=== PATIENT | female | born 1990 | race Caucasian/White ===

== ENCOUNTER 2020-04-04 13:31 | Outpatient (REF) | payer OTHER, SELFPAY | END 2020-04-04 13:32 | disposition home or self-care (01) | LOC: HO.LAB 13:31 | PROVIDERS: Visit Provider Internal Medicine | DX: Z20.828 Contact with and (suspected) exposure to other viral communicable diseases (principal) | CPT/HCPCS: C9803; U0003 ==

== ENCOUNTER 2020-10-22 13:50 | Outpatient (REF) | payer OTHER, SELFPAY ==
--- NOTE | ~2020-10-22 | US_ITS ---
EXAMINATION: US THYROID CLINICAL INFORMATION: Nontoxic multinodular goiter. COMPARISON: Ultrasound thyroid soft tissues neck 11/15/2019 and 05/10/2019. TECHNIQUE: Linear transducer grayscale and color Doppler examination with attention to the region of the thyroid. FINDINGS: SIZE: Measurements of the thyroid lobes and nodules are given in sagittal, anteroposterior and transverse dimensions respectively. Right Thyroid Lobe: 4.3 x 2.1 x 1.4 cm, volume 6.6 mL. Previously 5.0 x 2.0 x 1.7 cm, volume 8.9 mL. Parenchyma: The gland echotexture is heterogeneous. Thyroid vascularity is normal. Left Thyroid Lobe: 4.0 x 1.6 x 1.3 cm, volume 5.8 mL. Previously 4.6 x 1.6 x 1.5 cm, volume 0.8 mL. Parenchyma: The gland echotexture is heterogeneous. Thyroid vascularity is normal. Isthmus: 2.4 cm in maximum AP dimension. Previously 0.4 cm. Estimated total number of nodules greater than or equal to 1 cm: 0. Project Admin nodules are described as follows: 1. Location: Right lower pole. Size: 0.56 x 0.50 x 0.41 cm, volume 0.06 mL. Previously: 6 7 x 0.41 x 0.58 cm, volume 0.08 mL. Nodule characteristics: Composition: Spongiform (0). Echogenicity: 0 Shape: 0 Margins: 0 Echogenic Foci: 0 ACR TI-RADS total points: 0 ACR TI-RADS category: 0 Significant change in size (>/= 20% in 2 dimensions and minimal increase of 2 mm or 50% or greater increase in volume): None Change in features: None Change in ACR TI-RADS risk category: None available 2. Location: Left lower pole. Size: 0.84 x 0.52 x 0.71 cm, volume 0.16 mL. Previously: 1.0 x 0.63 x 0.1 cm, volume 0.32 mL. Nodule characteristics: Composition: Solid (2). Echogenicity: Hyperechoic (1). Shape: Not taller than wide (0). Margins: Smooth (0). Echogenic Foci: None (0). ACR TI-RADS total points: 3 ACR TI-RADS category: 3 Significant change in size (>/= 20% in 2 dimensions and minimal increase of 2 mm or 50% or greater increase in volume): None Change in features: None Change in ACR TI-RADS risk category: Not available NODES: No lymphadenopathy is seen in the tissue surrounding the thyroid gland. US/US thyroid IMPRESSION: Subcentimeter thyroid nodules nonsuspicious in both lobes. The thyroid lobes are heterogenous but not enlarged. Recommend continued follow-up. ACR TI-RADS RECOMMENDATION REFERENCE: Ultrasound-guided fine-needle aspiration, followup ultrasound, no further follow up. * TR1 (0 point) and TR 2 (2 points): No FNA or follow up * TR3 (3 points): FNA if more than or equal to 2.5 cm in maximum dimension, followup ultrasound in 1, 3 and 5 years if 1.5 to 2.4 cm in maximum dimension. * TR4 (4-6 points): FNA if more than or equal to 1.5 cm in maximum dimension, followup ultrasound in 1, 2, 3 and 5 years if 1 to 1.4 cm in maximum dimension. * TR5 (more than or equal to 7 points): FNA if more than or equal to 1 cm in maximum dimension, followup ultrasound every year for 5 years if 0.5 to 0.9 cm in maximum dimension. * TR3, TR4 or TR5 nodules that are below the size threshold for follow up receive no follow up.
== END 2020-10-22 13:51 | disposition home or self-care (01) ==
LOC: HO.US 13:50
PROVIDERS: Visit Provider Internal Medicine Endocrinology, Diabetes & Metabolism
DX: E04.2 Nontoxic multinodular goiter (principal)
CPT/HCPCS: 76536

== ENCOUNTER 2020-12-03 07:21 | Outpatient (REF) | payer OTHER, SELFPAY ==
[2020-12-03 08:53] LABS: Thyroid Stimulating Hormone 2.25 uIU/mL (0.32-4.0)
== END 2020-12-03 07:22 | disposition home or self-care (01) ==
LOC: HO.LAB 07:21
PROVIDERS: PCP Nurse Practitioner Family; Visit Provider Internal Medicine Endocrinology, Diabetes & Metabolism
DX: E04.2 Nontoxic multinodular goiter (principal); E06.3 Autoimmune thyroiditis
CPT/HCPCS: 36415; 84439; 84443

== ENCOUNTER 2021-01-09 09:16 | Outpatient (REF) | payer OTHER, SELFPAY | END 2021-01-09 09:17 | disposition home or self-care (01) | LOC: HO.LAB 09:16 | PROVIDERS: PCP Nurse Practitioner Family; Visit Provider Internal Medicine | DX: Z20.822 Contact with and (suspected) exposure to COVID-19 (principal) | CPT/HCPCS: C9803; U0003; U0005 ==

== ENCOUNTER → 2022-12-09 07:10 | Outpatient (BNVA) | payer OTHER, SELFPAY | PROVIDERS: PCP Nurse Practitioner Family; Visit Provider Internal Medicine ==

== ENCOUNTER 2023-01-16 09:30 | Outpatient (REF) | payer OTHER, SELFPAY ==
[2023-01-16 11:11] LABS: MANUAL DIFF FLAG NO
[2023-01-16 11:19] LABS: Appearance Urine Clear; Color Urine Yellow; Glucose Urine UA Negative (Negative); Leukocyte Esterase Urine Small (1+) (Negative); Nitrite Urine Negative (Negative); PH 6.5 (5.0-9.0); UMIC TRIGGER UACC YES; Urine Blood Negative (Negative); Urine Ketones Negative (Negative); Urine Protein Negative (Neg-Trace)
[2023-01-16 11:22] LABS: Basophils Absolute Auto 0.1 X10*3/uL (0.0-0.2); Basophils Percent Auto 0.5 % (0-2); Eosinophils Absolute Auto 0.5 X10*3/uL (0.0-0.4); Eosinophils Percent Auto 4.8 % (0-4); Hemoglobin 13.5 g/dl (12.0-16.0); Imm Gran Abs Auto 0.01 X10*3/uL (0.00-0.03); Imm Gran Pct Auto 0.1 % (0.0-0.4); Lymphocytes Absolute Auto 2.8 X10*3/uL (1.2-4.9); Lymphocytes Percent Auto 29.4 % (20-40); Mean Corpuscular HGB Conc 32.1 g/dl (31.0-35.0); Mean Corpuscular Hemoglobin 27.6 pg (27.0-33.0); Mean Corpuscular Volume 85.7 fL (80.0-98.0); Mean Platelet Volume 10.8 fL (9.4-12.3); Monocytes Absolute Auto 0.8 X10*3/uL (0.1-1.2); Monocytes Percent Auto 8.7 % (2-11); Neutrophils Absolute Auto 5.3 x10*3/uL (2.0-8.3); Neutrophils Percent Auto 56.5 % (45-73); Platelet Count 307 X10*3/uL (160-400); Red Cell Distribution Width 13.7 % (11.0-16.0); White Blood Count 9.4 X10*3/uL (4.8-10.8)
[2023-01-16 11:50] LABS: Alanine Aminotransferase 17 U/L (0-31); Albumin Level 4.1 g/dL (3.5-5.0); Alkaline Phosphatase 83 U/L (39-117); Anion Gap 10 (12-20); Aspartate Amino Transferase 15 U/L (5-31); Bilirubin Total 0.2 mg/dL (0.0-1.0); Blood Urea Nitrogen 14 mg/dL (9-16); Calcium 9.3 mg/dL (8.4-10.2); Carbon Dioxide 25 mmol/L (22-29); Chloride 107 mmol/L (96-108); Cholesterol 206 mg/dL (<200); Estimated Glomerular Filt Rate > 60; Glucose Fasting 98 mg/dL (60-99); HDL Cholesterol 46 mg/dL (>40); LDL Cholesterol Calculated 106 mg/dL (<100); Potassium 4.3 mmol/L (3.3-5.1); Sodium 138 mmol/L (135-145); Total Protein 7.3 g/dL (6.5-8.0); Triglycerides 273 mg/dL (<150)
[2023-01-16 12:07] LABS: TSH reflex Free T4 1.86 uIU/mL (0.32-4.0)
[2023-01-16 12:08] LABS: Bacteria Urine None Seen (None Seen); Hyaline Casts Urine 0-2 /LPF (0-2); UACC Culture Trigger YES; WBC Urine 0-5 /HPF (0-5)
== END 2023-01-16 09:31 | disposition home or self-care (01) ==
LOC: HO.HMGCLDS 09:30
PROVIDERS: PCP Nurse Practitioner Family; Visit Provider Nurse Practitioner Family
DX: Z00.00 Encounter for general adult medical examination without abnormal findings (principal); R82.90 Unspecified abnormal findings in urine; E06.3 Autoimmune thyroiditis; E78.5 Hyperlipidemia, unspecified
CPT/HCPCS: 36415; 80053; 80061; 81001; 84443; 85025; 87086

== ENCOUNTER 2023-01-18 09:34 | Outpatient (REF) | payer OTHER, SELFPAY ==
--- NOTE | ~2023-01-18 | US_ITS ---
EXAMINATION: US THYROID CLINICAL INFORMATION: Autoimmune thyroiditis. COMPARISON: Ultrasound thyroid 10/22/2020 and 11/15/2019. TECHNIQUE: Linear transducer reardon-scale and color Doppler examination with attention to the region of the thyroid. FINDINGS: SIZE: Measurements of the thyroid lobes and nodules are given in sagittal, anteroposterior and transverse dimensions respectively. Right Thyroid Lobe: 4.9 x 1.7 x 1.6 cm, volume 6.8 mL. Previously 4.3 x 2.1 x 1.4 cm, volume 6.6 mL. Parenchyma: The gland echotexture is heterogeneous. Thyroid vascularity is normal. Left Thyroid Lobe: 4.4 x 1.5 x 1.4 cm, volume 5.1 mL. Previously 4.0 x 1.6 x 1.3 cm, volume 5.8 mL. Parenchyma: The gland echotexture is heterogeneous. Thyroid vascularity is normal. Isthmus: 0.6 cm in maximum AP dimension. Previously 0.4 cm. Estimated total number of nodules greater than or equal to 1 cm: 1. Operations Expert nodules are described as follows: 1. Location: Right inferior. Size: 0.9 x 0.6 x 0.5 cm, volume 0.1 mL. Previously: 0.5 x 0.5 x 0.4 cm, volume 0.06 mL. Nodule characteristics: Composition: Solid/almost completely solid (2). Echogenicity: Hypoechoic (2). Shape: Taller than wide (3). Margins: Smooth (0). Echogenic Foci: None (0). ACR TI-RADS total points: 7 Previous: 0 ACR TI-RADS category: 5 Previous: 1 2. Location: Left mid. Size: 0.5 x 0.5 x 0.5 cm, volume 0.1 mL. Previously: New since the previous study. Nodule characteristics: Composition: Solid/almost completely solid (2). Echogenicity: Hypoechoic (2). Shape: Not taller than wide (0). Margins: Smooth (0). Echogenic Foci: None (0). ACR TI-RADS total points: 4 ACR TI-RADS category: 4 3. Location: Left inferior. Size: 1.0 x 0.6 x 0.9 cm, volume 0.3 mL. Previously: 0.8 x 0.5 x 0.7 cm, volume 0.1 mL. Nodule characteristics: Composition: Solid (2). Echogenicity: Hyperechoic (1). Shape: Not taller than wide (0). Margins: Smooth (0). Echogenic Foci: None (0). ACR TI-RADS total points: 3 Previous: 3 ACR TI-RADS category: 3 Previous: 3 NODES: No lymphadenopathy is seen in the tissue surrounding the thyroid gland. US/US thyroid IMPRESSION: Multinodular thyroid gland, largest nodules left inferior 1.0 cm TR 3 and right inferior 0.9 cm TR 5. Continued surveillance recommended. ACR TI-RADS RECOMMENDATION REFERENCE: Ultrasound-guided fine-needle aspiration, follow up ultrasound, no further followup. * TR1 (0 point) and TR2 (2 points): No FNA or followup * TR3 (3 points): FNA if more than or equal to 2.5 cm in maximum dimension, follow up ultrasound in 1, 3 and 5 years if 1.5 to 2.4 cm in maximum dimension. * TR4 (4-6 points): FNA if more than or equal to 1.5 cm in maximum dimension, follow up ultrasound in 1, 2, 3 and 5 years if 1 to 1.4 cm in maximum dimension. * TR5 (more than or equal to 7 points): FNA if more than or equal to 1 cm in maximum dimension, follow up ultrasound every year for 5 years if 0.5 to 0.9 cm in maximum dimension. * TR3, TR4 or TR5 nodules that are below the size threshold for follow up receive no followup.
== END 2023-01-18 09:35 | disposition home or self-care (01) ==
LOC: HO.US 09:34
PROVIDERS: PCP Nurse Practitioner Family; Visit Provider Nurse Practitioner Family
DX: E04.2 Nontoxic multinodular goiter (principal); E06.3 Autoimmune thyroiditis
CPT/HCPCS: 76536

== ENCOUNTER 2023-05-04 14:37 | Outpatient (AMB) | payer OTHER, SELFPAY ==
--- NOTE | 2023-05-04 14:40 | MHC.PC.OV ---
Vital Signs 05/04/23 14:42 Height 5 ft 2 in Weight 199 lb BMI 36.4 BP 116/72 Blood Pressure Location Rt brachial Position Sitting Pulse 96 Pulse Source Pulse Oximeter Pulse Oximetry (%) 97 Oxygen Delivery Method Room Air Intake Visit Reasons: Annual PE Intake Note: Pt is here for her Annual PE Pt has [employer] at [facility] her last pap was 12/15/22 Is last menstrual period known: Yes Last menstrual period: 04/13/23 Allergies No Known Allergies [No Known Allergies*] Allergy (Verified 05/04/23 14:45) Tobacco use date assessed: 05/04/23 Dental Screening Dental Screen Date: 05/04/23 Did you have a dental visit in the last 12 months?: No Did you have a dental problem in the last 6 months where you did not have access to dental care?: No Was dental information given to patient?: No HPI Annual PE HPI Details Pt is here for a PE. Will order labs. Has a health plan manager. [facility] Medical History Seizure disorder Toni's disease Non-toxic multinodular goiter Surgical History History of section Family History Father Mental health disorder Mother No problems noted. Maternal Grandmother CVD (cardiovascular disease) Maternal Grandfather Diabetes mellitus Paternal Grandmother No problems noted. 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 1. Little interest or pleasure in doing things: not at all 2. Feeling down, depressed, or hopeless: several days 3. Trouble falling or staying asleep, or sleeping too much: not at all 4. Feeling tired or having little energy: not at all 5. Poor appetite or overeating: not at all 6. Feeling bad about yourself - or that you are a failure or have let yourself or your family down: several days 7. Trouble concentrating on things, such as reading the newspaper or watching television: several days 8. Moving or speaking so slowly that other people could have noticed. Or the opposite - being so fidgety or restless that you have been moving around a lot more than usual: not at all 9. Thoughts that you would be better off or of hurting yourself in some way: not at all Total score: 3 Source: Developed by Drs. Jovon Rodriguez, Christina Black, Noble Kirby and colleagues, with an educational jacob from [employer]. Thrive Questionnaire Date Thrive assessed: 04/15/22 I am a: Patient What is your living situation today?: I have a steady place to live Within the past 12 months, did the food you bought not last and you didn't have the money to get more?: Never true Within the past 12 months, did you worry whether your food would run out before you got money to buy more?: Never true Do you have trouble paying for medicines?: No Do you have trouble getting transportation to medical appointments?: No Do you have trouble paying your heating and electricity bill?: No Do you have trouble taking care of your child, family member or friend?: No Do you have trouble with day-to-day activities such as bathing, preparing meals, shopping, managing finances, etc.?: No Are you currently unemployed and looking for a job?: No Are you interested in more education?: No Please select the resources that you would like help with: None AUDIT C Alcohol Use Questionnaire (AUDIT-C) 1. How often do you have a drink containing alcohol?: 2-4 times a month 2. How many drinks containing alcohol do you have on a typical day when you are drinking?: 3 or 4 3. How often do you have six or more drinks on one occasion?: Never Total Score: 3 HAKEEM-7 AMB Questionnaire HAKEEM-7 Date HAKEEM - 7 assessed: 05/04/23 Feeling nervous, anxious, or on edge: 1 = Several days Not being able to stop or control worryin = Not at all Worrying too much about different things: 0 = Not at all Trouble relaxin = Several days Being so restless that it is hard to sit still: 0 = Not at all Becoming easily annoyed or irritable: 1 = Several days Feeling afraid as if something awful might happen: 0 = Not at all Total HAKEEM-7 score (0-4 normal; 5-9 mild; 10-14 moderate; 15-21 severe): 3 Source: Developed by Drs. Jovon Rodriguez, Christina Black, Noble Kirby and colleagues, with an educational jacob from [employer]. Review of Systems Const Denies chills and Denies fever(s) Eyes Denies blurry vision ENT Denies vertigo, Denies dizziness and Denies sore throat Card Denies chest pain at rest, Denies chest pain with activity, Denies diaphoresis, Denies dyspnea and Denies dyspnea on exertion Resp Denies cough, Denies dyspnea, Denies dyspnea on exertion and Denies wheezing GI Denies abdominal pain, Denies melena, Denies hematochezia, Denies constipation, Denies diarrhea and Denies loose stools Denies hematuria Musc Denies numbness and Denies tingling Skin/Breast Denies lesions Neuro Denies vertigo, Denies dizziness, Denies numbness and Denies tingling Psych Denies anxiety, Denies depression, Denies homicidal ideation, Denies suicidal ideation and Denies other (substance abuse) Aller/Immun Denies wheezing Physical exam (Primary Care) Vital Signs: Last Vital Signs Pulse 96 05/04/23 14:42 BP 116/72 05/04/23 14:42 Pulse Ox 97 05/04/23 14:42 Oxygen Delivery Method Room Air 05/04/23 14:42 BMI result Body Mass Index 36.4 Tobacco/Smoking Status: Tobacco use Status Tobacco use date assessed 05/04/23 05/04/23 14:50 Patient Tobacco Use Status Never used Tobacco 05/04/23 14:41 e-Cigarette/Vaping Use Never Used 05/04/23 14:41 PHQ-9: PHQ-9 Score PHQ-9: Total score 3 05/04/23 15:26 Thrive Assessment: Date of Thrive Assessment Date Thrive assessed 04/15/22 05/04/23 14:41 Const General: cooperative Nutritional Appearance: obese Orientation/consciousness: patient oriented x3 HENMT Head: Yes normal to inspection, Yes normocephalic and Yes atraumatic Ears: TM's normal bilaterally Eyes General: appearance normal, both eyes and all related structures Alignment and Position: alignment normal and position normal Neck Neck: Yes normal visual inspection and Yes no lymphadenopathy Thyroid: Thyroid normal Resp Effort & Inspection: normal respiratory effort Auscultation: clear to auscultation bilaterally Cardio Rate: regular rate Rhythm: regular rhythm Heart sounds: S1 normal heart sound present, S2 normal heart sound present and no murmurs GI Palpation (GI): Soft to palpation and nontender Auscultation: normal bowel sounds Skin Rashes: no rashes Neuro General: patient oriented x3, moves all extremities, no focal motor deficits and deep tendon reflexes 2+ bilaterally Romberg Test: Negative Psych Appearance: grossly normal Mental Status: mental status grossly normal Speech and movement: Normal speech and movement present Affect: normal affect Attitude: cooperative Thought process: Normal thought process present Thought content: Normal thought content present Insight: Good insight present (Psych) Judgement: Good judgement present (Psych) Assessment and Plan Assessment & Plan (1) Physical exam: Code(s): Z00.00 - Encounter for general adult medical examination without abnormal findings Plan: Labs ordered Plan The patient agreed to the use of a medical radiation dosimetrist for this encounter. Scribed for JO-ANN Rhodes by Margie Bonilla medical radiation dosimetrist, on 05/04/2023 at 15:15 EST. Orders: Orders Comprehensive [place]. Panel Fast Today Z00.00 - Encounter for general adult medical examination without abnormal findings TSH reflex Free T4 Today Z00.00 - Encounter for general adult medical examination without abnormal findings Lipid Panel Today Z00.00 - Encounter for general adult medical examination without abnormal findings Complete Blood Count Auto Diff Today Z00.00 - Encounter for general adult medical examination without abnormal findings UA CC w/rflx Micro + Cult Today Z00.00 - Encounter for general adult medical examination without abnormal findings Coding Level of Care Code Est Pt Prev Care 18-39y(35399) Diagnoses Physical exam Z00.00
[2023-05-04 14:42] VITALS: BP 116/72; PULSE 96; O2SAT 97; BMI 36.4
== END 2023-05-04 15:18 | disposition home or self-care (01) ==
PROVIDERS: PCP Nurse Practitioner Family; Visit Provider Nurse Practitioner Family
DX: Z00.00 Encounter for general adult medical examination without abnormal findings (principal)
CPT/HCPCS: 99395

== ENCOUNTER 2023-07-19 08:13 | Outpatient (REF) | payer OTHER, SELFPAY ==
[2023-07-19 11:37] LABS: MANUAL DIFF FLAG NO
[2023-07-19 11:39] LABS: Basophils Percent Auto 0.3 % (0-2); Eosinophils Absolute Auto 0.6 X10*3/uL (0.0-0.4); Hematocrit 40.4 % (37.0-47.0); Hemoglobin 13.2 g/dl (12.0-16.0); Imm Gran Abs Auto 0.04 X10*3/uL (0.00-0.03); Imm Gran Pct Auto 0.4 % (0.0-0.4); Lymphocytes Absolute Auto 2.5 X10*3/uL (1.2-4.9); Lymphocytes Percent Auto 23.8 % (20-40); Mean Corpuscular HGB Conc 32.7 g/dl (31.0-35.0); Mean Corpuscular Hemoglobin 27.7 pg (27.0-33.0); Mean Corpuscular Volume 84.9 fL (80.0-98.0); Mean Platelet Volume 10.4 fL (9.4-12.3); Monocytes Absolute Auto 0.8 X10*3/uL (0.1-1.2); Monocytes Percent Auto 7.7 % (2-11); Neutrophils Absolute Auto 6.4 x10*3/uL (2.0-8.3); Neutrophils Percent Auto 61.8 % (45-73); Platelet Count 313 X10*3/uL (160-400); Red Blood Count 4.76 X10*6/uL (4.20-5.50); Red Cell Distribution Width 14.2 % (11.0-16.0); White Blood Count 10.4 X10*3/uL (4.8-10.8)
[2023-07-19 12:09] LABS: Alanine Aminotransferase 23 U/L (0-31); Albumin Level 4.1 g/dL (3.5-5.0); Alkaline Phosphatase 72 U/L (39-117); Anion Gap 12 (12-20); Aspartate Amino Transferase 23 U/L (5-31); Bilirubin Total 0.2 mg/dL (0.0-1.0); Blood Urea Nitrogen 17 mg/dL (9-16); Calcium 9.1 mg/dL (8.4-10.2); Carbon Dioxide 24 mmol/L (22-29); Chloride 105 mmol/L (96-108); Cholesterol 203 mg/dL (<200); Estimated Glomerular Filt Rate > 60; Glucose Fasting 98 mg/dL (60-99); HDL Cholesterol 44 mg/dL (>40); LDL Cholesterol Calculated 109 mg/dL (<100); Potassium 4.2 mmol/L (3.3-5.1); Sodium 137 mmol/L (135-145); Total Protein 7.4 g/dL (6.5-8.0); Triglycerides 252 mg/dL (<150)
== END 2023-07-19 08:14 | disposition home or self-care (01) ==
LOC: HO.HMGCLDS 08:13
PROVIDERS: PCP Nurse Practitioner Family; Visit Provider Nurse Practitioner Family
DX: Z00.00 Encounter for general adult medical examination without abnormal findings (principal); Z13.6 Encounter for screening for cardiovascular disorders
CPT/HCPCS: 36415; 80053; 80061; 84443; 85025

== ENCOUNTER 2023-07-19 09:03 | Outpatient (AMB) | payer OTHER, SELFPAY ==
--- NOTE | 2023-07-19 09:06 | AM.OFFWIN_ITS ---
Intake Vital Signs 07/19/23 09:08 Weight 91.172 kg BP 122/80 Blood Pressure Location Rt brachial Position Sitting Pulse 96 Pulse Source Pulse Oximeter Pulse Oximetry (%) 99 Oxygen Delivery Method Room Air Intake Visit Reasons: EST/uti(lobby) Intake Note: Patient here for burning when urinating, slight blood when wiping which all started last night. Patient Tobacco Use Status: Never used Tobacco Allergies No Known Allergies [No Known Allergies*] Allergy (Verified 07/19/23 09:08) Do you need a note to return to daycare/school/sports/work: No HPI HPI Comments History of Present Illness Details 922 33-year-old female presents with burning on urination for the past few days as well as dark urine. Patient concerned she may have a urinary tract infection. Denies fevers, chills, chest pain, shortness of breath, nausea, vomiting, abdominal pain, flank pain. Physical exam benign Likely UTI versus cystitis. Unlikely obstructing uropathy, pyelonephritis. Likely . No concerns for STDs per patient. UA with blood white blood cells. Likely cystitis or UTI. Will treat with 5 days Macrobid. Educated patient on diagnosis and treatment plan, answered all question, patient verbalizes understanding. At this time patient will be discharged home, advised to return with new or worsening symptoms. Educated on worrisome signs and symptoms and when to return. At this time I feel comfortable discharge home. [facility] Medical History Malignant neoplasm of thyroid gland Seizure disorder Toni's disease Non-toxic multinodular goiter Surgical History History of section Family History Father Mental health disorder Mother No problems noted. Maternal Grandmother CVD (cardiovascular disease) Maternal Grandfather Diabetes mellitus Paternal Grandmother No problems noted. Paternal Grandfather Diabetes mellitus Stomach cancer Maternal Aunt Breast cancer Paternal Aunt Breast cancer Paternal Uncle Mental health disorder Social History Housing: House Alcohol intake: never Patient Tobacco Use Status: Never used Tobacco e-Cigarette/Vaping Use: Never Used Second Hand Smoke Exposure: No service: No Current occupational status: employed Current occupation: [employer] Current occupational exposures/hazards: No Cognitive needs: No Hearing needs: No Vision needs: No Review of Systems Const All systems reviewed & are unremarkable except as noted in HPI and below Physical Exam Vital Signs: Last Vital Signs Pulse 96 07/19/23 09:08 BP 122/80 07/19/23 09:08 Pulse Ox 99 07/19/23 09:08 Oxygen Delivery Method Room Air 07/19/23 09:08 Vital signs stable Appearance: Alert.? Oriented X3.? No acute distress.? Head: Normocephalic, atraumatic, no step-offs or deformities Eyes: Pupils equal, round and reactive to light.? CVS: Normal heart rate and rhythm.? Pulses normal.? Respiratory: No respiratory distress.? Breath sounds normal.? Abdomen: Soft and nontender.? Skin: Skin warm and dry.? Normal skin color.? Normal skin turgor.? Extremities: 5/5 strength to bilateral upper and lower extremities Neuro: Oriented X 3.? No motor deficit.? No sensory deficit. CN 2-12 intact Results AMB Urinalysis, Automated UA Leukoctes 0 Dolores/uL Last Edit by ZEYNEP Vu on 07/19/23 09:19 UA Nitrite Negative Last Edit by ZEYNEP Vu on 07/19/23 09:19 UA Urobilinogen 0.2 mg/dL Last Edit by ZEYNEP Vu on 07/19/23 09:19 UA Protein 0 mg/dL Last Edit by ZEYNEP Vu on 07/19/23 09:19 UA pH 6.0 Last Edit by ZEYNEP Vu on 07/19/23 09:19 UA Blood 25 Dru/uL Last Edit by ZEYNEP Vu on 07/19/23 09:19 UA Specific [place] 1.025 Last Edit by ZEYNEP Vu on 07/19/23 09:19 UA Ketone Negative Last Edit by ZEYNEP Vu on 07/19/23 09:19 UA Bilirubin 0 mg/dL Last Edit by ZEYNEP Vu on 07/19/23 09:19 UA Glucose 0 mg/dL Last Edit by ZEYNEP Vu on 07/19/23 09:19 Results Reviewed Results Reviewed: Laboratory Last Values Urine pH (Auto) 6.0 07/19/23 09:18 Specific [place] (Auto) 1.025 07/19/23 09:18 Urine Protein (Auto) 0 mg/dL 07/19/23 09:18 Glucose (UA)(Auto) 0 mg/dL 07/19/23 09:18 Urine Ketones (Auto) Negative 07/19/23 09:18 Urine Blood (Auto) 25 Dru/uL 07/19/23 09:18 Urine Nitrite (Auto) Negative 07/19/23 09:18 Urine Bilirubin (Auto) 0 mg/dL 07/19/23 09:18 Urine Urobilinogen (Auto) 0.2 mg/dL 07/19/23 09:18 Leukocyte Esterase (Auto) 0 Dolores/uL 07/19/23 09:18 Assessment & Plan Assessment & Plan (1) Urinary tract infection: Code(s): N39.0 - Urinary tract infection, site not specified Plan Take your medications as prescribed. If you were prescribed antibiotics today, it is important that you take your medication to their entirety, do not skip any doses, do not finish them early. Follow-up with your primary care provider this week. Return to the emergency department with new or worsening symptoms. Such as fevers, chills, chest pain, shortness of breath, nausea, vomiting, dizziness, headache, vision changes, lethargy In case of emergency call 911 Orders: Orders AMB Urinalysis Automated Today Z13.9 - Encounter for screening, unspecified Medications: New nitrofurantoin monohyd/m-cryst 100 mg (Macrobid) must administer with a meal/food 100 mg PO BID 10 caps 0RF 5 days Coding Level of Care Code Est Pt Level 3 (97165) Diagnoses Urinary tract infection N39.0
[2023-07-19 09:08] VITALS: BP 122/80; PULSE 96; O2SAT 99
== END 2023-07-19 09:30 | disposition home or self-care (01) ==
PROVIDERS: PCP Nurse Practitioner Family; Visit Provider Physician Assistant
DX: N39.0 Urinary tract infection, site not specified (principal); R30.9 Painful micturition, unspecified
CPT/HCPCS: 81003; 99213

== ENCOUNTER 2023-11-23 08:11 | Outpatient (AMB) | payer BC, SELFPAY ==
--- NOTE | 2023-11-23 07:33 | MHC.PC.OV ---
Intake Visit Reasons: Anxiety F/u-Iphone Allergies No Known Allergies [No Known Allergies*] Allergy (Verified 11/23/23 07:37) Medication List - Last Reconciled 11/23/23 by JO-ANN Chow calcium carbonate (Calcium 500) 500 mg PO BID folic acid 1 mg PO DAILY levetiracetam 500 mg PO BID levothyroxine 137 mcg PO DAILY qnurvywlmsak-Zd-ksof-minerals tabs PO nitrofurantoin monohyd/m-cryst 100 mg (Macrobid) 100 mg PO BID 5 days pyridoxine (vitamin B6) (Vitamin B-6) 50 mg PO DAILY sertraline 50 mg PO DAILY 90 days sumatriptan succinate 100 mg PO DIRECTED Tobacco use date assessed: 05/04/23 Dental Screening Dental Screen Date: 05/04/23 HPI Anxiety F/u-Iphone HPI Details Anxiety: Pt is currently taking sertraline 50mg. I will not change this right now due to pt's thyroid (removed in july 2023, on 137mcg levo currently). She will reach out to me with how her levels are after she sees endo this month. Denies any SI and HI. Will consider increasing sertraline in the future. [facility] Medical History Paratracheal lymphadenopathy Malignant neoplasm of thyroid gland Seizure disorder Toni's disease Non-toxic multinodular goiter Surgical History H/O total thyroidectomy History of section Family History Father Mental health disorder Mother No problems noted. Maternal Grandmother CVD (cardiovascular disease) Maternal Grandfather Diabetes mellitus Paternal Grandmother No problems noted. Paternal Grandfather Diabetes mellitus Stomach cancer Maternal Aunt Breast cancer Paternal Aunt Breast cancer Paternal Uncle Mental health disorder Social History Housing: House Alcohol intake: never Patient Tobacco Use Status: Never used Tobacco e-Cigarette/Vaping Use: Never Used Second Hand Smoke Exposure: No service: No Current occupational status: employed Current occupation: [employer] Current occupational exposures/hazards: No Cognitive needs: No Hearing needs: No Vision needs: No Questionnaire Thrive Questionnaire Date Thrive assessed: 04/15/22 HAKEEM-7 AMB Questionnaire HAKEEM-7 Date HAKEEM - 7 assessed: 05/04/23 Source: Developed by Drs. Jovon Rodriguez, Christina Black, Noble Kirby and colleagues, with an educational jacob from [employer]. Review of Systems Const Reports as per HPI Physical exam (Primary Care) Tobacco/Smoking Status: Tobacco use Status Tobacco use date assessed 05/04/23 11/23/23 07:35 Patient Tobacco Use Status Never used Tobacco 11/23/23 07:35 e-Cigarette/Vaping Use Never Used 11/23/23 07:35 Thrive Assessment: Date of Thrive Assessment Date Thrive assessed 04/15/22 11/23/23 07:35 Const General: cooperative Orientation/consciousness: patient oriented x3 Neuro General: patient oriented x3 Psych Appearance: grossly normal Mental Status: mental status grossly normal Speech and movement: Clear speech present Affect: normal affect Attitude: cooperative Thought process: Normal thought process present Thought content: Normal thought content present Insight: Good insight present (Psych) Judgement: Good judgement present (Psych) Telehealth Telehealth Telehealth Platform: [employer] Location of provider rendering services: practice address Location of patient: address on file Patient Identification confirmed using: Name, : Yes Telehealth method: video Patient verbally consented to treatment: Yes Patient verbally consented to billing insurance company: Yes Patient informed of any privacy concerns related to visit: Yes Minutes spent on Phone/Video with Pt.: 10 Assessment and Plan Assessment & Plan (1) Non-toxic multinodular goiter: Code(s): E04.2 - Nontoxic multinodular goiter Plan: Following up with endo (2) H/O total thyroidectomy: Comment: winter 2023 Code(s): E89.0 - Postprocedural hypothyroidism Plan: Following up with endo Plan The patient agreed to the use of a medical appointment scheduler for this encounter. Scribed for JO-ANN Rhodes by Margie Bonilla medical appointment scheduler, on 11/23/2023 at 07:35 EST. Orders: Orders Comprehensive Met. Panel Today E04.2 - Nontoxic multinodular goiter, E89.0 - Postprocedural hypothyroidism TSH reflex Free T4 Today E04.2 - Nontoxic multinodular goiter, E89.0 - Postprocedural hypothyroidism Medications: New naproxen 500 mg PO BID PRN 60 tabs 2RF pain 30 days Coding Level of Care Code Tele Est Pt Level 3 (17172) Diagnoses Non-toxic multinodular goiter E04.2 H/O total thyroidectomy E89.0
== END 2023-11-23 11:43 | disposition home or self-care (01) ==
LOC: HO.HMGC 08:11
PROVIDERS: PCP Nurse Practitioner Family; Visit Provider Nurse Practitioner Family
DX: E04.2 Nontoxic multinodular goiter (principal); E89.0 Postprocedural hypothyroidism
CPT/HCPCS: 99213

== ENCOUNTER 2023-11-29 08:27 | Outpatient (REF) | payer BC, SELFPAY ==
[2023-11-29 10:54] LABS: Alanine Aminotransferase 12 U/L (0-31); Albumin Level 4.2 g/dL (3.5-5.0); Alkaline Phosphatase 64 U/L (39-117); Anion Gap 12 (12-20); Aspartate Amino Transferase 13 U/L (5-31); Bilirubin Total 0.3 mg/dL (0.0-1.0); Blood Urea Nitrogen 17 mg/dL (9-16); Carbon Dioxide 24 mmol/L (22-29); Chloride 108 mmol/L (96-108); Cholesterol 174 mg/dL (<200); Estimated Glomerular Filt Rate > 60; Glucose Fasting 100 mg/dL (60-99); Glucose Random 100 mg/dL (60-115); HDL Cholesterol 46 mg/dL (>40); LDL Cholesterol Calculated 108 mg/dL (<100); Potassium 3.9 mmol/L (3.3-5.1); Sodium 140 mmol/L (135-145); Total Protein 7.2 g/dL (6.5-8.0); Triglycerides 101 mg/dL (<150)
[2023-11-29 12:07] LABS: Free T4 (Free Thyroxine) 1.28 ng/dL (0.71-1.85)
== END 2023-11-29 08:28 | disposition home or self-care (01) ==
LOC: HO.HMGCLDS 08:27
PROVIDERS: PCP Nurse Practitioner Family; Visit Provider Nurse Practitioner Family
DX: E78.5 Hyperlipidemia, unspecified (principal); E04.2 Nontoxic multinodular goiter; E89.0 Postprocedural hypothyroidism
CPT/HCPCS: 36415; 80053; 80061; 84439; 84443

== ENCOUNTER 2023-12-17 14:24 | Outpatient (AMB) | payer BC, SELFPAY ==
--- NOTE | 2023-12-17 14:40 | AM.OFFWIN_ITS ---
Intake Vital Signs 12/17/23 14:41 Height 5 ft 2 in Weight 178 lb BMI 32.6 BP 116/80 Blood Pressure Location Lt brachial Position Sitting Pulse 102 H Pulse Source Pulse Oximeter Temp 99.3 F Temp Source Oral Pulse Oximetry (%) 99 Oxygen Delivery Method Room Air Intake Visit Reasons: EP, pain low back, down both legs Intake Note: pt here c/o low back pain radiating down legs Patient Tobacco Use Status: Never used Tobacco Allergies No Known Allergies [No Known Allergies*] Allergy (Verified 12/17/23 14:41) Do you need a note to return to daycare/school/sports/work: No HPI EP, pain low back, down both legs HPI Details This note is constructed using voice recognition software. While every effort has been made to ensure accuracy, cold press loader errors may have been included. The patient is a 33 year old female who presents to the clinic today with back pain with radiation down both legs. She notes that the pain has been going on for several months, and her got ?sick of hearing about it? and advised her to come finally get seen. She reports that the pain is primarily in the lower buttock region and we will sometimes beyond the right and radiating down the right leg and sometimes beyond the left radiating down the left leg today it is on the right radiating down the right leg. She has no numbness or tingling. No difficulty walking though she does have some pain with rolling on the right side today. She notes that she has lost weight since having her thyroid removed several months ago, and has not been paying attention to that much. She also does report that she has a high level of anxiety following the removal of her thyroid, and feels that sometimes when she has anxiety she clenches up different muscle groups and this certainly makes her pain a little bit worse. She denies injury, trauma, surgery, loss of control of bowel or bladder [facility] Medical History Paratracheal lymphadenopathy Malignant neoplasm of thyroid gland Seizure disorder Toni's disease Non-toxic multinodular goiter Surgical History H/O total thyroidectomy History of section Family History Father Mental health disorder Mother No problems noted. Maternal Grandmother CVD (cardiovascular disease) Maternal Grandfather Diabetes mellitus Paternal Grandmother No problems noted. Paternal Grandfather Diabetes mellitus Stomach cancer Maternal Aunt Breast cancer Paternal Aunt Breast cancer Paternal Uncle Mental health disorder Social History Housing: House Alcohol intake: never Patient Tobacco Use Status: Never used Tobacco e-Cigarette/Vaping Use: Never Used Second Hand Smoke Exposure: No service: No Current occupational status: employed Current occupation: [employer] Current occupational exposures/hazards: No Cognitive needs: No Hearing needs: No Vision needs: No Review of Systems Const All systems reviewed & are unremarkable except as noted in HPI and below Physical Exam Vital Signs: Last Vital Signs Temp 99.3 F 12/17/23 14:41 Pulse 102 H 12/17/23 14:41 BP 116/80 12/17/23 14:41 Pulse Ox 99 12/17/23 14:41 Oxygen Delivery Method Room Air 12/17/23 14:41 BMI result Body Mass Index 32.6 Const General: cooperative, healthy appearing, comfortable, no acute distress and alert Orientation/consciousness: patient oriented x3 Limitations: no limitations General: No no CVA tenderness Back/Spine/Pelvis Other: Positive right-sided sciatic notch tenderness. Positive right-sided SLR, negative well SLR. Pain worse in right sciatic notch on lateral rotation both left and right. No restriction to left or right rotation, no restriction on flexion. Intact distal neurovascular exam. Back: No no CVA tenderness Skin General skin exam: no rashes or lesions noted, elasticity normal and turgor normal Neuro General: patient oriented x3 Extrem General: Yes normal to inspection, Yes full ROM, Yes capillary refill normal and Yes normal exam except as noted Psych Appearance: grossly normal Mental Status: mental status grossly normal Speech and movement: Normal speech and movement present Affect: normal affect Assessment & Plan Assessment & Plan (1) Piriformis syndrome: Code(s): G57.00 - Lesion of sciatic nerve, unspecified lower limb Qualifiers: Laterality: right Qualified Code(s): G57.01 - Lesion of sciatic nerve, right lower limb Plan: Physical examination today consistent with piriformis syndrome. We will treat with prednisone burst for anti-inflammatory effects. Patient to go to [facility] physical therapy techniques for sciatica. Advised patient to follow this for any worsening or failure to resolve. She may need to follow up with her primary care provider, particularly with this occurring intermittently bilaterally. Additionally she may have some hip flexor involvement, where physical therapy may be particularly effective for her. Advised heat or ice, and [id number] NSAIDs after completion of prednisone burst. Plan See above for full details and plan. Medications: New prednisone 40 mg (2 x 20 mg) PO DAILY 5 days 10 tabs 0RF Coding Level of Care Code Est Pt Level 3 (34274) Diagnoses Piriformis syndrome of right side G57.01 Laterality: right
[2023-12-17 14:41] VITALS: BP 116/80; PULSE 102; TEMP 37.4; O2SAT 99; BMI 32.6
== END 2023-12-17 17:47 | disposition home or self-care (01) ==
PROVIDERS: PCP Nurse Practitioner Family; Visit Provider Registered Nurse
DX: G57.01 Lesion of sciatic nerve, right lower limb (principal)
CPT/HCPCS: 99213

== ENCOUNTER 2024-03-16 08:00 | Outpatient (RCR) | payer BC, SELFPAY ==
--- NOTE | 2024-01-13 16:40 | MHC.PT.EP ---
[facility] [place] Office [place] Office [place] Office [address] James Bunch [address] [phone] F: [phone] F: [phone] F: [phone] F: [phone] Physical Therapy Plan of Care Date of Evaluation: 01/13/24 Date of Surgery: N/A Diagnosis: Back pain of lumbar region with sciatica Assessment: Pt is a pleasant 33yo female presenting to PT with referring dx of lumbar back pain with sciatica. Able to provoke symptoms w/ Alin assessments, and reported mild centralization with repeated side gliding. Impairments include radiating pain/tingling, mild loss of sensation, gross lower extremity weakness, impaired/painful transfers, deficits in tissue extensibility/flexibility, sitting/standing posture, and gait abnormalities. Pt is a good candidate for PT due to her age, prognosis of her condition, and modifiable nature of her impairments. Pt would benefit from skilled PT to address deficits in strength/flexibility, postural re-education, gait training, functional training for proper lifting mechanics, and skills for pain management. Educated patient the anatomy of the spine and the nervous system using visual aids. Pt is of moderate complexity due to the presence of bilateral symptoms, recent, history of cancer, and had no clear directional preference. Frequency and Duration: The patient will be seen 2x/wk for 6 weeks Short Term Goals: Pt will demonstrate proper sitting posture using a lumbar roll to improve spinal alignment during work day Pt will perform HEP independently to encourage self-management of condition Care Home Goals: Pt will demonstrate a statistically different Aretha score to demonstrate pain relief during everyday activities Pt will ambulate 2600ft on even ground w/ <=2/10 radicular sx for community navigation Pt will perform 10 reps of lumbar extension w/ no symptoms below the knee to facilitate reaching for [place] objects Treatment Plan: Modalities to reduce pain, spasms and effusion. Manual therapy to restore motion and function. Therapeutic exercise to improve strength and flexibility. Neuromuscular re-education for posture and balance. Therapeutic activities to return to functional activities of daily living. Electronically signed by: Brandi Calderon PT, DPT Please sign and return to therapist. Thank you for your referral.
--- NOTE | 2024-04-24 10:38 | MHC.PT.DC ---
[facility] [place] Office [place] Office [place] Office [address] James Bunch [address] [phone] F: [phone] F: [phone] F: [phone] F: [phone] Physical Therapy Discharge Report Diagnosis: Back pain of lumbar region with sciatica Date of Surgery: N/A Date of Evaluation: 01/13/24 Date of Discharge: 03/16/24 Treatments to Date: 18 Cancellations to Date: 0 No Shows to Date: 0 Discharge Status: Improved Function Independent with HEP Discharge Summary: The patient overall has made excellent progress here in physical therapy. Her pain is minimal and the frequency of her radicular symptoms are much less. She still stands with a trunk shift that has improved but is still mildly present. She is independent with her home program and has increased her walking time and has instituted a foam rolling routine. She is discharged from this physical therapy plan of care. Electronically signed by: Brandi Calderon PT, DPT Please sign and return to therapist. Thank you for your referral.
== END 2024-04-24 10:37 | disposition home or self-care (01) ==
LOC: HO.PT 08:00
PROVIDERS: PCP Nurse Practitioner Family; Visit Provider Nurse Practitioner Family
DX: M54.40 Lumbago with sciatica, unspecified side (principal)
CPT/HCPCS: 97110; 97112; 97140; 97161; 97162

== ENCOUNTER 2024-04-10 08:22 | Outpatient (AMB) | payer BC, SELFPAY ==
--- NOTE | 2024-04-10 07:50 | MHC.PC.OV ---
Intake Visit Reasons: Discuss depression, meds Allergies No Known Allergies [No Known Allergies*] Allergy (Verified 12/17/23 14:41) Tobacco use date assessed: 05/04/23 Dental Screening Dental Screen Date: 05/04/23 HPI Discuss depression, meds HPI Details Pt c/o ongoing lower back and right-sided sciatica. She has tried PT with little relief. Will order XR of lumbar spine. Denies any signs of cauda equina. Anxiety/depression: Pt reports doing okay. Pt is currently taking sertraline 75mg. She would like this increased, will increase to 100mg. Denies any SI and HI. [facility] Medical History Paratracheal lymphadenopathy Malignant neoplasm of thyroid gland Seizure disorder Toni's disease Non-toxic multinodular goiter Surgical History H/O total thyroidectomy History of section Family History Father Mental health disorder Mother No problems noted. Maternal Grandmother CVD (cardiovascular disease) Maternal Grandfather Diabetes mellitus Paternal Grandmother No problems noted. Paternal Grandfather Diabetes mellitus Stomach cancer Maternal Aunt Breast cancer Paternal Aunt Breast cancer Paternal Uncle Mental health disorder Social History Housing: House Alcohol intake: never Patient Tobacco Use Status: Never used Tobacco e-Cigarette/Vaping Use: Never Used Second Hand Smoke Exposure: No service: No Current occupational status: employed Current occupation: [employer] and [employer] Current occupational exposures/hazards: No Cognitive needs: No Hearing needs: No Vision needs: No Questionnaire Thrive Questionnaire Date Thrive assessed: 04/15/22 AUDIT C Alcohol Use Questionnaire (AUDIT-C) 2. How many drinks containing alcohol do you have on a typical day when you are drinking?: 1 or 2 3. How often do you have six or more drinks on one occasion?: Less than monthly Total Score: 1 HAKEEM-7 AMB Questionnaire HAKEEM-7 Date HAKEEM - 7 assessed: 05/04/23 Source: Developed by Drs. Jovon LChristina Nieves Kurt Kroenke and colleagues, with an educational jacob from [employer]. Review of Systems Const Reports as per HPI Physical exam (Primary Care) Tobacco/Smoking Status: Tobacco use Status Tobacco use date assessed 05/04/23 04/10/24 07:52 Patient Tobacco Use Status Never used Tobacco 04/10/24 07:52 e-Cigarette/Vaping Use Never Used 04/10/24 07:52 Thrive Assessment: Date of Thrive Assessment Date Thrive assessed 04/15/22 04/10/24 07:52 Const General: cooperative Orientation/consciousness: patient oriented x3 Neuro General: patient oriented x3 Psych Appearance: grossly normal Mental Status: mental status grossly normal Speech and movement: Normal speech and movement present Affect: normal affect Attitude: cooperative Thought process: Normal thought process present Thought content: Normal thought content present Insight: Good insight present (Psych) Judgement: Good judgement present (Psych) Telehealth Telehealth Telehealth Platform: [employer] Location of provider rendering services: practice address Location of patient: address on file Patient Identification confirmed using: Name, : Yes Telehealth method: video Patient verbally consented to treatment: Yes Patient verbally consented to billing insurance company: Yes Patient informed of any privacy concerns related to visit: Yes Minutes spent on Phone/Video with Pt.: 10 Coding Level of Care Code Tele Est Pt Level 3 (95257) Diagnoses Back pain of lumbar region with sciatica M54.40 Depression F32.A Anxiety F41.9 Assessment & Plan Assessment & Plan (1) Back pain of lumbar region with sciatica: Code(s): M54.40 - Lumbago with sciatica, unspecified side Category: Medical Plan: XR lumbar spine placed (2) Depression: Code(s): F32.A - Depression, unspecified Category: Medical Plan: increasing sertraline to 100mg from 75. She has a therapist, denies any SI or HI, upcoming PE scheduled (3) Anxiety: Code(s): F41.9 - Anxiety disorder, unspecified Category: Medical Plan: sertraline increased Plan The patient agreed to the use of a lead medical technologist for this encounter. Scribed for JO-ANN Rhodes by maryuri Mo scribe, on 04/10/2024 at 07:50 EST. Orders: Orders XR lumbar spine 2-3V Today M54.40 - Lumbago with sciatica, unspecified side Medications: Changed From sertraline 75 mg (1.5 x 50 mg) PO DAILY 90 days 135 tabs 1RF F41.9 - Anxiety disorder, unspecified To sertraline 100 mg PO DAILY 90 days 90 tabs 1RF F41.9 - Anxiety disorder, unspecified
== END 2024-04-10 12:05 | disposition home or self-care (01) ==
LOC: HO.HMCC 08:22
PROVIDERS: PCP Nurse Practitioner Family; Visit Provider Nurse Practitioner Family
DX: M54.40 Lumbago with sciatica, unspecified side (principal); F32.A Depression, unspecified; F41.9 Anxiety disorder, unspecified

== ENCOUNTER 2024-04-11 15:45 | Outpatient (REF) | payer BC, SELFPAY ==
--- NOTE | ~2024-04-11 | XR_ITS ---
EXAMINATION: XR LUMBAR SPINE CLINICAL INFORMATION: Lumbago with sciatica, unspecified side M54.40. COMPARISON: XR Lumbar complete 03/03/2018 TECHNIQUE: Three views of the lumbosacral spine. FINDINGS: Vertebral body heights are preserved. Mild degenerative disc disease at L4-L5 and L5-S1 with mild facet arthropathy. The paraspinal soft tissues are normal. XR/XR lumbar spine 2-3V IMPRESSION: Mild degenerative disc disease at L4-L5 and L5-S1. Electronically signed by: Jovon Tai MD 05/16/2024 09:31 AM GERSON
== END 2024-04-11 15:46 | disposition home or self-care (01) ==
LOC: HO.HMGCX 15:45
PROVIDERS: PCP Nurse Practitioner Family; Visit Provider Nurse Practitioner Family
DX: M54.50 Low back pain, unspecified (principal)
CPT/HCPCS: 72100

== ENCOUNTER 2024-07-27 13:35 | Outpatient (AMB) | payer BC, SELFPAY ==
[2024-07-27 13:37] VITALS: BP 116/80; PULSE 118; RESP 20; O2SAT 99; BMI 30.1
--- NOTE | 2024-07-27 13:37 | MHC.PC.OV ---
Vital Signs 07/27/24 13:37 07/27/24 14:12 Height 5 ft 2 in Weight 164 lb 8 oz BMI 30.1 BP 116/80 Blood Pressure Location Lt brachial Position Sitting Respiration 20 Pulse 118 H 99 Pulse Source Pulse Oximeter Pulse Oximetry (%) 99 Oxygen Delivery Method Room Air Intake Visit Reasons: Annual PE/Office cx last appt Intake Note: Pt is here today for her annual physical Allergies No Known Allergies [No Known Allergies*] Allergy (Verified 07/27/24 13:37) Medication List - Last Reconciled 07/27/24 by PIETRO Chow- calcium carbonate (Calcium 500) 500 mg PO BID folic acid 1 mg PO DAILY levetiracetam 500 mg PO BID levothyroxine 137 mcg PO DAILY dmofbmzdrbjp-Cd-mfmr-minerals tabs PO naproxen 500 mg PO BID PRN 30 days pyridoxine (vitamin B6) (Vitamin B-6) 50 mg PO DAILY sertraline 100 mg PO DAILY 90 days sumatriptan succinate 100 mg PO DIRECTED Tobacco use date assessed: 07/27/24 Dental Screening Dental Screen Date: 07/27/24 Did you have a dental visit in the last 12 months?: Yes Did you have a dental problem in the last 6 months where you did not have access to dental care?: No Was dental information given to patient?: Patient has dentist HPI Annual PE/Office cx last appt HPI Details History of Present Illness The patient is a 34-year-old female presenting with concerns regarding anxiety and chronic lower back pain. Anxiety is her primary concern, marked by episodes of increased heart rate. Although she experiences some depression, anxiety symptoms are more predominant. She denies various symptoms including chest pain, shortness of breath, and gastrointestinal disturbances. Importantly, no suicidal or homicidal ideation is present. 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 Considering her family's history of breast reduction surgery for similar issues, she is exploring this as a future option, but prioritizes having another child before any surgical intervention. She has been instructed to commence a stretching routine to alleviate some back pain symptoms. Denies any s/s of cauda equina. does get intermittent radicular symptoms down RLE. Health Maintenance - Encourage regular stretching exercises to alleviate lower back pain. - Discuss potential future intervention for macromastia post-. Social History - Intends to have another child before considering surgical intervention for macromastia. Review of Systems - Cardiovascular: Reports increased heart rate with anxiety. - Psychiatric: Reports anxiety and depression; denies suicidal or homicidal ideation. - Gastrointestinal: Denies chest pain, shortness of breath, nausea, vomiting, diarrhea, constipation, abdominal pain, blood in the stool. Physical Exam General: Cooperative, healthy appearing, comfortable, no acute distress and well developed Orientation: Patient oriented x3 Limitations: No limitations Head: Normal to inspection Ears: Hearing grossly normal bilaterally Nose: Normal external nose present Face and sinus: Normal facial exam Eyes: Appearance normal, both eyes and all related structures Neck: Normal visual inspection and Yes full ROM Respiratory: Normal respiratory effort and able to speak in complete sentences. Clear to auscultation bilaterally Cardiovascular: Regular rate and rhythm. Normal S1 and S2 GI: Normal to inspection. Soft to palpation and nontender Skin: No rashes or lesions noted Neuro: Patient oriented x3 Extremities: Normal to inspection, reports chronic lower back pain Results Plan The management plan includes initiating a stretching routine for the chronic lower back pain, particularly associated with macromastia. Ongoing monitoring and discussions for anxiety management will continue, avoiding pharmacological interventions at this point. The patient is contemplating breast reduction surgery, decided to pursue post-. Follow-up consultations will assess the effectiveness of these interventions and reconsider options as necessary. Discussion Notes I discussed with the patient the current symptoms of anxiety and chronic lower back pain. Various lifestyle modifications, such as beginning a stretching routine, were recommended. We explored the possibility of future breast reduction surgery, emphasizing waiting until after another as per the patient's plan. I instructed the patient to maintain contact for any concerns or questions as her condition evolves. Patient Instructions - Begin a daily stretching routine to help alleviate lower back pain. - Contact the clinic with any new concerns or if symptoms worsen. - Discuss any plans for future breast reduction surgery post-. [facility] Medical History Paratracheal lymphadenopathy Malignant neoplasm of thyroid gland Seizure disorder Toni's disease Non-toxic multinodular goiter Surgical History H/O total thyroidectomy History of section Family History Father Mental health disorder Mother No problems noted. Maternal Grandmother CVD (cardiovascular disease) Maternal Grandfather Diabetes mellitus Paternal Grandmother No problems noted. Paternal Grandfather Diabetes mellitus Stomach cancer Maternal Aunt Breast cancer Paternal Aunt Breast cancer Paternal Uncle Mental health disorder Social History Housing: House Alcohol intake: never Patient Tobacco Use Status: Never used Tobacco e-Cigarette/Vaping Use: Never Used Second Hand Smoke Exposure: No service: No Current occupational status: employed Current occupation: [employer] Current occupational exposures/hazards: No Cognitive needs: No Hearing needs: No Vision needs: No Questionnaire PHQ-9 Over the last 2 weeks, how often have you been bothered by any of the following problems? 1. Little interest or pleasure in doing things: several days 2. Feeling down, depressed, or hopeless: several days 3. Trouble falling or staying asleep, or sleeping too much: several days 4. Feeling tired or having little energy: several days 5. Poor appetite or overeating: several days 6. Feeling bad about yourself - or that you are a failure or have let yourself or your family down: several days 7. Trouble concentrating on things, such as reading the newspaper or watching television: several days 8. Moving or speaking so slowly that other people could have noticed. Or the opposite - being so fidgety or restless that you have been moving around a lot more than usual: not at all 9. Thoughts that you would be better off or of hurting yourself in some way: not at all Total score: 7 Depression Screening Interpretation: Negative Depression Screening Done: Yes 10241 - PHQ-9 Billing: Yes Source: Developed by Drs. Jovon Rodriguez, Christina Black, Noble Kirby and colleagues, with an educational jacob from [employer]. Thrive Questionnaire Date Thrive assessed: 07/27/24 I am a: Patient What is your living situation today?: I have a steady place to live Within the past 12 months, did the food you bought not last and you didn't have the money to get more?: Never true Within the past 12 months, did you worry whether your food would run out before you got money to buy more?: Never true Do you have trouble paying for medicines?: No Do you have trouble getting transportation to medical appointments?: No Do you have trouble paying your heating and electricity bill?: No Do you have trouble taking care of your child, family member or friend?: No Do you have trouble with day-to-day activities such as bathing, preparing meals, shopping, managing finances, etc.?: No Are you currently unemployed and looking for a job?: No Are you interested in more education?: No Please select the resources that you would like help with: None Currently or been in a relationship where the following occur: No concerns reported THRIVE Score: 0 AUDIT C Alcohol Use Questionnaire (AUDIT-C) 1. How often do you have a drink containing alcohol?: Monthly or less 2. How many drinks containing alcohol do you have on a typical day when you are drinking?: 1 or 2 3. How often do you have six or more drinks on one occasion?: Never Total Score: 1 Score Reviewed/Action Taken: Yes HAKEEM-7 AMB Questionnaire HAKEEM-7 Date HAKEEM - 7 assessed: 07/27/24 Feeling nervous, anxious, or on edge: 1 = Several days Not being able to stop or control worryin = Several days Worrying too much about different things: 1 = Several days Trouble relaxin = Several days Being so restless that it is hard to sit still: 1 = Several days Becoming easily annoyed or irritable: 1 = Several days Feeling afraid as if something awful might happen: 1 = Several days Total HAKEEM-7 score (0-4 normal; 5-9 mild; 10-14 moderate; 15-21 severe): 7 Source: Developed by Drs. Jovon Rodriguez, Christina Black, Noble Kirby and colleagues, with an educational jacob from [employer]. HAKEEM-7 Assessment Billing HAKEEM-7 Assessment Tool: HAKEEM-7 Assessment 87119 Physical exam (Primary Care) Vital Signs: Last Vital Signs Pulse 118 H 07/27/24 13:37 Resp 20 07/27/24 13:37 BP 116/80 07/27/24 13:37 Pulse Ox 99 07/27/24 13:37 Oxygen Delivery Method Room Air 07/27/24 13:37 BMI result Body Mass Index 30.1 Tobacco/Smoking Status: Tobacco use Status Tobacco use date assessed 07/27/24 07/27/24 13:39 Patient Tobacco Use Status Never used Tobacco 07/27/24 13:39 e-Cigarette/Vaping Use Never Used 07/27/24 13:39 PHQ-9: PHQ-9 Score PHQ-9: Total score 7 07/27/24 13:47 Depression Screening Interpretation: Negative Thrive Assessment: Date of Thrive Assessment Date Thrive assessed 07/27/24 07/27/24 13:47 Currently or been in a relationship where the following occur: No concerns reported Coding Level of Care Code Est Pt Prev Care 18-39y(30047) Diagnoses Anxiety F41.9 Depression F32.A Physical exam Z00.00 Additional Codes HAKEEM-7 Assessment Billing - HAKEEM-7 Assessment Tool: HAKEEM-7 Assessment 47377 ([id number]) PHQ-9 - 85458 - PHQ-9 Billing: Yes ([id number]) Assessment & Plan Assessment & Plan (1) Anxiety: Code(s): F41.9 - Anxiety disorder, unspecified Category: Medical (2) Depression: Code(s): F32.A - Depression, unspecified Category: Medical (3) Physical exam: Code(s): Z00.00 - Encounter for general adult medical examination without abnormal findings Category: Medical Plan . Orders: Orders UA CC w/rflx Micro + Cult Today F41.9 - Anxiety disorder, unspecified, Z00.00 - Encounter for general adult medical examination without abnormal findings Complete Blood Count Auto Diff Today F41.9 - Anxiety disorder, unspecified, Z00.00 - Encounter for general adult medical examination without abnormal findings Comprehensive [place]. Panel Fast Today F41.9 - Anxiety disorder, unspecified, Z00.00 - Encounter for general adult medical examination without abnormal findings TSH reflex Free T4 Today F41.9 - Anxiety disorder, unspecified, Z00.00 - Encounter for general adult medical examination without abnormal findings Lipid Panel Today F41.9 - Anxiety disorder, unspecified, Z00.00 - Encounter for general adult medical examination without abnormal findings Referrals Psychiatry Outpatient Consultation Service F32.A - Depression, unspecified, F41.9 - Anxiety disorder, unspecified
[2024-07-27 14:12] VITALS: PULSE 99
== END 2024-07-27 14:44 | disposition home or self-care (01) ==
PROVIDERS: PCP Nurse Practitioner Family; Visit Provider Nurse Practitioner Family
DX: F41.9 Anxiety disorder, unspecified (principal); F32.A Depression, unspecified; Z00.00 Encounter for general adult medical examination without abnormal findings

== ENCOUNTER → 2024-07-27 13:35 | Outpatient (BNVA) | payer BC, SELFPAY | PROVIDERS: PCP Nurse Practitioner Family; Visit Provider Nurse Practitioner Family | DX: Z00.00 Encounter for general adult medical examination without abnormal findings (principal); F41.9 Anxiety disorder, unspecified; F32.A Depression, unspecified; G89.29 Other chronic pain; M54.50 Low back pain, unspecified | CPT/HCPCS: 96127 ==

== ENCOUNTER 2025-03-14 14:50 | Outpatient (REF) | payer BC, SELFPAY ==
[2025-03-14 18:43] LABS: Hematocrit 41.0 % (37.0-47.0); Hemoglobin 13.1 g/dl (12.0-16.0); Mean Corpuscular HGB Conc 32.0 g/dl (31.0-35.0); Mean Corpuscular Hemoglobin 27.2 pg (27.0-33.0); Mean Corpuscular Volume 85.1 fL (80.0-98.0); NRBC Abs Auto 0.000 X10*3/uL (0.0-0.012); NRBC Pct Auto 0.0 /100WBC (0.0-0.2); Platelet Count 266 X10*3/uL (160-400); Red Blood Count 4.82 X10*6/uL (4.20-5.50); White Blood Count 9.0 X10*3/uL (4.8-10.8)
[2025-03-14 19:16] LABS: Cholesterol 208 mg/dL (<200); HDL Cholesterol 58 mg/dL (>40); Triglycerides 170 mg/dL (<150)
[2025-03-14 19:21] LABS: Alanine Aminotransferase 11 U/L (0-31); Albumin Level 4.4 g/dL (3.5-5.0); Alkaline Phosphatase 55 U/L (39-117); Anion Gap 12 (12-20); Aspartate Amino Transferase 14 U/L (5-31); Blood Urea Nitrogen 17 mg/dL (9-16); Calcium 8.9 mg/dL (8.4-10.2); Carbon Dioxide 26 mmol/L (22-29); Chloride 105 mmol/L (96-108); Cholesterol 211 mg/dL (<200); Estimated Glomerular Filt Rate > 60; HDL Cholesterol 57 mg/dL (>40); Iron 89 mcg/dL (30-160); Percent Iron Saturation 33 % (15-50); Potassium 4.0 mmol/L (3.3-5.1); Sodium 139 mmol/L (135-145); Total Iron Binding Capacity 273 mcg/dL (228-428); Total Protein 7.1 g/dL (6.5-8.0); Triglycerides 170 mg/dL (<150); Unsaturated Iron Binding 184 ug/dL
[2025-03-14 19:35] LABS: Ferritin 75 ng/mL (10-122)
[2025-03-14 19:50] LABS: Folate 5.9 ng/mL (> or = 4.0); Vitamin B12 463 pg/mL (200-900)
== END 2025-03-14 14:51 | disposition home or self-care (01) ==
LOC: HO.WFDLDS 14:50
PROVIDERS: Nurse Practitioner Family; PCP Nurse Practitioner Family; Visit Provider Nurse Practitioner Family
DX: Z00.00 Encounter for general adult medical examination without abnormal findings (principal); E89.0 Postprocedural hypothyroidism; G40.909 Epilepsy, unspecified, not intractable, without status epilepticus; E66.9 Obesity, unspecified; E55.9 Vitamin D deficiency, unspecified; F41.9 Anxiety disorder, unspecified; M54.50 Low back pain, unspecified; F33.0 Major depressive disorder, recurrent, mild; N62 Hypertrophy of breast; G43.909 Migraine, unspecified, not intractable, without status migrainosus; M51.369 Other intervertebral disc degeneration, lumbar region without mention of lumbar back pain or lower extremity pain; Z28.21 Immunization not carried out because of patient refusal; Z68.30 Body mass index [BMI] 30.0-30.9, adult; Z76.89 Persons encountering health services in other specified circumstances
CPT/HCPCS: 36415; 80053; 80061; 82306; 82607; 82728; 82746; 83036; 83540; 84443; 85027; 96127

== ENCOUNTER 2025-03-14 14:50 | Outpatient (AMB) | payer BC, SELFPAY ==
--- NOTE | 2025-03-14 14:56 | A.OFFPC_ITS ---
Vital Signs 03/14/25 15:04 Height 5 ft 2 in Weight 165 lb 6 oz BMI 30.2 BP 106/68 Blood Pressure Location Lt brachial Position Sitting Respiration 20 Pulse 95 Pulse Source Pulse Oximeter Temp 97.6 F Temp Source Temporal Artery Scan Pulse Oximetry (%) 97 Oxygen Delivery Method Room Air Intake Visit Reasons: Alexis Gunn Intake Note: Nasrin presents in the office today to establish care with new provider. Patient declines flu shot. Is last menstrual period known: Yes Last menstrual period: 03/03/25 Allergies No Known Allergies (No Known Allergies*) Allergy (Verified 03/14/25 15:13) Medication List - Last Reconciled 03/14/25 by Cynthia Vernon, COST ANALYST- calcium carbonate (Calcium 500) 500 mg PO BID cetirizine (All Day Allergy (cetirizine)) 10 mg PO DAILY PRN folic acid 1 mg PO DAILY levetiracetam 500 mg PO BID 90 days levothyroxine (Synthroid) 125 mcg PO DAILY pdjrevihxcqu-Rb-idzq-minerals tabs PO naproxen 500 mg PO BID PRN 30 days pyridoxine (vitamin B6) (Vitamin B-6) 100 mg PO DAILY sertraline 100 mg PO DAILY 90 days sumatriptan succinate 100 mg PO DIRECTED Tobacco use date assessed: 03/14/25 Dental Screening Dental Screen Date: 03/14/25 Did you have a dental visit in the last 12 months?: Yes Did you have a dental problem in the last 6 months where you did not have access to dental care?: No Was dental information given to patient?: Patient has dentist HPI HPI Comments History of Present Illness Details 35 y/o F with HAKEEM, DDD of spine, Dyslipi demia, Hashtimotos Thyroid, Migraine, Fhx breast ca (Maternal and paternal aunt), gynecomastia s/p total thyroidectomy, C section Social: , works for [employer], has a son, 3 years old. Health Maintenance: Tdap 2021 Flu declined 03/14/25 Specialists: [place] [facility] History of Present Illness The patient is a 35-year-old female presenting to [facility]. I had the pleasure of being her PCP previously and am very happy to resume that roll again. She is coming from my colleague, Alexis Biswas. Records reviewed. Thyroid Cancer, status post-thyroidectomy: - Post-surgery management by endocrinmilady herman @ [facility] - Levothyroxine dose adjusted after weig ht loss. - Wt now stable. Seizure Disorder: - Managed with Keppra, with recent 24 ho ur EEG showing activity. - No seizures in over 20 years. - Man[place] [facility] [place] Migraine: - Treated with Sumatriptan. - Managed by [place] at [facility] Obesity: - Current BMI of 30.2, noted decrease in wt post-thyroidectomy. Vitamin D Deficiency: - Severe deficiency history, managed wit h supplements. - Will check lab today, although likely is managed by Endo. Anxiety/MDD: - Ineffective sertraline 100 mg therapy. - Persistent feelings of being down and lack of motivation. - Potential links to thyroid issues or e motional events. - Denies SI/HI. - Does have future plans to concieve. - Gynecomastia: Interested in breast red uction after childbearing is complete. - Chronic low back pain, likely worsened by this - Goes to Ch[facility] - Does home exercise which helps Review of Systems - Endocrine: Reports management of thyro id replacement therapy. - Neurologic: Denies seizures. Reports s table management of migraine. - Psychological: Reports feeling down, l ack of motivation, uncertain response to current anxiety medication. - Musculoskeletal: Reports chronic back discomfort. - General: Reports significant weight lo ss post-thyroidectomy. Physical Exam General: Well developed, well nourished, in no acute distress. Appears stated age. Head: Normocephalic, atraumatic. Eyes: Pupils are equal, round and reactive to light and accommodation. Conjunctivae are clear. Vision grossly normal. Lungs: Clear to auscultation bilaterally. No rales, rhonchi or wheeze noted. Good air flow in all beatty. Heart: Regular rate and rhythm. No murmurs, click, rubs or gallops are noted. Abdomen: Bowel sounds present in all quadrants. The abdomen is soft, nontender, with no masses or organomegaly noted. No hernias are noted. Musculoskeletal: Joints are nontender, without swelling, redness, or effusions. Pulses: Peripheral pulses are equal and palpable bilaterally. Extremities: No clubbing, cyanosis nor edema is noted. Psych: Mood and affect appropriate, although patient reports feeling down and lacking motivation, indicating depressive symptoms. Results Pending Discussion Notes During the consultation, we reviewed the patient's management and treatment options for reported depression and anxiety symptoms. We discussed the ineffectiveness of the current sertraline regimen and considered a possible transition to Celexa, given its shared SSRI classification and safe profile if conception plans proceed. I advised obtaining a new set of labs for CBC, CMP, lipid profile, iron levels, vitamin D, and B levels to rule out any deficiencies. We explored the history of vitamin D deficiency and recommended continuation of current supplements. For anxiety, Wellbutrin was ruled out due to the patient's seizure disorder. Potential back discomfort related to breast size was acknowledged, and a long-term plan for breast reduction surgery was considered post-childbearing. Patient agreed to pursue Reyna Alcazar MD for any future surgical consultations. Further lab testing at [place] or in-office was coordinated, with a reminder for appointment requests to be directed through the clinical portal. Patient was given time to ask questions. All questions were answered to their satisfaction. Assessment and Plan 1. Thyroid Cancer, status post-thyroidec pushpa - Continue levothyroxine management, greg alvarado with endocrinology. 2. Seizure Disorder - Maintain Keppra regimen, monitor with neurology. 3. Migraine - Maintain Sumatriptan, neurological ove rsight. 4. Obesity - Support weight management. 5. Vitamin D Deficiency - Maintain supplement regimen, repeat jere bs. 6. Anxiety/MDD - Consider switch from sertraline to Radha exa VS increase sertraline - Tx lab abnormalities if any exist befo re changing SSRI. Patient Instructions - Continue taking prescribed medications as directed. - Follow up with endocrinology for thyro id management. - Complete lab tests as ordered; no fast ing required. - Consider physical therapy or chiroprac tic care for back discomfort. - Discuss potential breast reduction arturo chrissy with Reyna Alcazar when ready. - Use the patient portal for future appo intment scheduling; direct messages for any immediate concerns. - I will send results to the portal w/ p rosanne. - RTO July, sooner PRN - Soooo good to see you again! :) Consent Patient was informed and verbally consented to the use of an ambient scribe for clinic note documentation during this visit. Total time spent caring for the patient today was 40 minutes. This includes time spent before the visit reviewing the chart, time spent during the visit, and time spent after the visit on documentation, reviewing laboratory results, diagnostic imaging, medications, performing a medically necessary evaluation, counseling on diagnoses, care coordination, ordering appropriate tests, ordering appropriate medications, review of tests performed by other providers, reporting test results with the patient, communication with other healthcare providers. 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 Maternal Grandmother CVD (cardiovascular disease) Maternal Grandfather Diabetes mellitus Paternal Grandmother No problems noted. Paternal Grandfather Diabetes mellitus Stomach cancer Maternal Aunt Breast cancer Paternal Aunt Breast cancer Paternal Uncle Mental health disorder Social History (Updated 03/14/25 @ 15:01 by Courtney Alvares [facility]) Housing: House Alcohol intake: never Patient Tobacco Use Status: Never used Tobacco e-Cigarette/Vaping Use: Never Used Second Hand Smoke Exposure: No Substance Use Type: Marijuana service: No Current occupational status: employed Current occupation: [employer] Current occupational exposures/hazards: No Cognitive needs: No Hearing needs: No Vision needs: No Female Reproductive History Menstrual Date of last menstrual period: 03/03/25 Questionnaire PHQ-9 Over the last 2 weeks, how often have you been bothered by any of the following problems? 1. Little interest or pleasure in doing things: several days 2. Feeling down, depressed, or hopeless: several days 3. Trouble falling or staying asleep, or sleeping too much: not at all 4. Feeling tired or having little energy: not at all 5. Poor appetite or overeating: not at all 6. Feeling bad about yourself - or that you are a failure or have let yourself or your family down: several days 7. Trouble concentrating on things, such as reading the newspaper or watching television: several days 8. Moving or speaking so slowly that other people could have noticed. Or the opposite - being so fidgety or restless that you have been moving around a lot more than usual: not at all 9. Thoughts that you would be better off or of hurting yourself in some way: not at all Total score: 4 Depression Screening Interpretation: Negative Depression Screening Done: Yes 68364 - PHQ-9 Billing: Yes Source: Developed by Drs. Jovon Rodriguez, Christina Black, Noble Kirby and colleagues, with an educational jacob from [employer]. Thrive Questionnaire Date Thrive assessed: 03/14/25 I am a: Patient What is your living situation today?: I have a steady place to live Within the past 12 months, did the food you bought not last and you didn't have the money to get more?: Never true Within the past 12 months, did you worry whether your food would run out before you got money to buy more?: Never true Do you have trouble paying for medicines?: No Do you have trouble getting transportation to medical appointments?: No Do you have trouble paying your heating and electricity bill?: No Do you have trouble taking care of your child, family member or friend?: No Do you have trouble with day-to-day activities such as bathing, preparing meals, shopping, managing finances, etc.?: No Are you currently unemployed and looking for a job?: No Are you interested in more education?: No Please select the resources that you would like help with: None Currently or been in a relationship where the following occur: No concerns re ported THRIVE Score: 0 AUDIT C Alcohol Use Questionnaire (AUDIT-C) 1. How often do you have a drink containing alcohol?: Monthly or less 2. How many drinks containing alcohol do you have on a typical day when you are drinking?: 1 or 2 3. How often do you have six or more drinks on one occasion?: Never Total Score: 1 Score Reviewed/Action Taken: Yes HAKEEM-7 AMB Questionnaire HAKEEM-7 Date HAKEEM - 7 assessed: 03/14/25 Feeling nervous, anxious, or on edge: 1 = Several days Not being able to stop or control worryin = Several days Worrying too much about different things: 1 = Several days Trouble relaxin = Several days Being so restless that it is hard to sit still: 1 = Several days Becoming easily annoyed or irritable: 1 = Several days Feeling afraid as if something awful might happen: 0 = Not at all Total HAKEEM-7 score (0-4 normal; 5-9 mild; 10-14 moderate; 15-21 severe): 6 Source: Developed by Drs. Jovon Rodriguez, Christina Black, Noble Kirby and colleagues, with an educational jacob from [employer]. HAKEEM-7 Assessment Billing HAKEEM-7 Assessment Tool: HAKEEM-7 Assessment 89020 Physical exam (Primary Care) Vital Signs: Last Vital Signs Temp 97.6 F 03/14/25 15:04 Pulse 95 03/14/25 15:04 Resp 20 03/14/25 15:04 BP 106/68 03/14/25 15:04 Pulse Ox 97 03/14/25 15:04 Oxygen Delivery Method Room Air 03/14/25 15:04 BMI result Body Mass Index 30.2 BMI Assessment/Plan discussion: High BMI High, discussed plan: lifestyle Tobacco/Smoking Status: Tobacco use Status Tobacco use date assessed 03/14/25 03/14/25 15:08 Patient Tobacco Use Status Never used Tobacco 03/14/25 15:01 e-Cigarette/Vaping Use Never Used 03/14/25 15:01 PHQ-9: PHQ-9 Score PHQ-9: Total score 4 03/14/25 15:08 Depression Screening Interpretation: Negative Thrive Assessment: Date of Thrive Assessment Date Thrive assessed 03/14/25 03/14/25 15:08 Currently or been in a relationship where the following occur: No concerns reported Coding Level of Care Code Est Pt Level 5 (16239) Complex EM visit Add On G2211 Diagnoses Encounter to establish care Z76.89 Malignant neoplasm of thyroid gland C73 Seizure disorder G40.909 Obesity (BMI 30-39.9) E66.9 Anxiety F41.9 Mild episode of recurrent major depressive disorder F33.0 Depression Type: major depressive disorder Major depression recurrence: recurrent Active/Remission status: currently active Major depression episode severity: mild Gynecomastia, female N62 Migraine G43.909 DDD (degenerative disc disease), lumbar M51.369 Influenza vaccination declined Z28.21 Additional Codes HAKEEM-7 Assessment Billing - HAKEEM-7 Assessment Tool: HAKEEM-7 Assessment 37623 ([id number]) PHQ-9 - 53073 - PHQ-9 Billing: Yes ([id number]) Assessment & Plan Assessment & Plan (1) Encounter to establish care: Code(s): Z76.89 - Persons encountering health services in other specified circumstances (2) Malignant neoplasm of thyroid gland: Comment: papillary thyroid ca s/p thyroidectomy Code(s): C73 - Malignant neoplasm of thyroid gland Category: Medical (3) Seizure disorder: Code(s): G40.909 - Epilepsy, unspecified, not intractable, without status epilepticus Category: Medical (4) Obesity (BMI 30-39.9): Code(s): E66.9 - Obesity, unspecified Category: Medical (5) Anxiety: Code(s): F41.9 - Anxiety disorder, unspecified Category: Medical (6) Depression: Code(s): F32.A - Depression, unspecified Category: Medical Qualifiers: Depression Type: major depressive disorder Major depression recurrence: recurrent Active/Remission status: currently active Major depression episode severity: mild Qualified Code(s): F33.0 - Major depressive disorder, recurrent, mild (7) Gynecomastia, female: Code(s): N62 - Hypertrophy of breast Category: Medical (8) Migraine: Code(s): G43.909 - Migraine, unspecified, not intractable, without status migrainosus Category: Medical (9) DDD (degenerative disc disease), lumbar: Code(s): M51.369 - Other intervertebral disc degeneration, lumbar region without mention of lumbar back pain or lower extremity pain Category: Medical (10) Influenza vaccination declined: Onset Date: ~03/14/25 Code(s): Z28.21 - Immunization not carried out because of patient refusal Category: Medical Plan . Orders: Orders Hemoglobin A1c Today F32.A - Depression, unspecified, F41.9 - Anxiety disorder, unspecified, Z00.00 - Encounter for general adult medical examination without abnormal findings IRON PROFILE Today F32.A - Depression, unspecified, F41.9 - Anxiety disorder, unspecified, Z00.00 - Encounter for general adult medical examination without abnormal findings Complete Blood Count no Diff Today F32.A - Depression, unspecified, F41.9 - Anxiety disorder, unspecified, Z00.00 - Encounter for general adult medical examination without abnormal findings Comprehensive Met. Panel Today F32.A - Depression, unspecified, F41.9 - Anxiety disorder, unspecified, Z00.00 - Encounter for general adult medical examination without abnormal findings Ferritin Today F32.A - Depression, unspecified, F41.9 - Anxiety disorder, unspecified, Z00.00 - Encounter for general adult medical examination without abnormal findings Lipid Panel Today F32.A - Depression, unspecified, F41.9 - Anxiety disorder, unspecified, Z00.00 - Encounter for general adult medical examination without abnormal findings Vitamin D 25-OH Total Today F32.A - Depression, unspecified, F41.9 - Anxiety disorder, unspecified, Z00.00 - Encounter for general adult medical examination without abnormal findings Vitamin B12 and Folate Today F32.A - Depression, unspecified, F41.9 - Anxiety disorder, unspecified, Z00.00 - Encounter for general adult medical examination without abnormal findings Patient Instructions: Walk-In Care (Urgent Care): We Make it Easy Walk-in for urgent medical issues such as: ? Seasonal Allergies ? Insect Bites ? Cough ? Diarrhea ? Acute Asthma Attacks ? Back, Knee or Joint Pain ? Ear Infection ? Fever without a Rash ? Headaches ? Nausea ? [place] Eye, Rash or Skin Irritation ? Sore Throat ? Sports Physicals ? Vomiting Most insurances are accepted. Patients do not need to be part of the [facility] to seek care at the walk-in clinic. Locations [address] [place] [address] Open Wednesday through Wednesday 8am-5pm *Hours may vary due to staffing availability. To confirm Walk-In Care hours please call. [facility] Elma [address], [place] [address] ? [phone] [facility] Walk-In Care in [place] provides services to ages 18 and over. Open Wednesday-Wednesday: 7 a.m. to 5 p.m. and Wednesday: 9 a.m. to 3 p.m.* *Hours may vary due to staffing availability. To confirm Walk-In Care hours in [place], please call [phone]. [address] [place] [address] ? [phone] [facility] Walk-In Care in [place] provides services to ages 12 and over. Open Wednesday-Wednesday: 8 a.m. to 5 p.m. Hours may vary due to staffing availability. To confirm Walk-In Care hours in [place], please call [phone]. LABORATORY SERVICES: [facility] [place] ? Primary Location [address] [place] [address] Wednesday through Wednesday 6:00 AM ? 5:00 PM Wednesday 7:00 AM ? 11:00 AM* [phone] The [facility] is centrally located near the front entrance of the [facility] for easy outpatient access. Convenient parking is provided for outpatients. *Hours may vary due to staffing availability. To confirm Laboratory hours for any location, please call [phone]. Offsite Location For your convenience, we offer offsite laboratory draw stations at the following locations: [address] [place] [address] ? [address], [address] Wednesday through Wednesday 7:30 AM ? 1:00 PM* [phone] *Hours may vary due to staffing availability. To confirm Laboratory hours for any location, please call [phone]. [place] ? [address] Wednesday through Wednesday 6:00 AM ? 3:30 PM* Wednesday 6:30 AM ? 3 PM* [phone] *Hours may vary due to staffing availability. To confirm Laboratory hours for any location, please call [phone] [place] [address] Wednesday through Wednesday 7:30 AM ? 4:00 PM* [phone] *Hours may vary due to staffing availability. To confirm Laboratory hours for any location, please call [phone] [place] [address] Wednesday through 9:00 AM ? 4:00 PM* *Hours may vary due to staffing availability. To confirm Laboratory hours for any location, please call [phone]. Appointments are not necessary. Walk-ins are welcome. Like all the departments throughout the [facility], our Lab undergoes frequent reviews to ensure the quality and accuracy of test results, and our staff takes special pride in its status as a nationally accredited facility. Patient Portal: [facility] ONE PATIENT. ONE RECORD. BETTER CARE. [facility] has a fully integrated, cutting- edge mobile electronic health information system that has revolutionized the way we care for our patients and manage our organization. This system improves communication and coordination enabling us to provide safe, higher-quality care, and an overall positive experience for staff and patients. Our first priority, as always, is to deliver the highest quality care possible. The system is running in the background supporting that priority. This portal is for all [facility] services and practices. If you are experiencing any technical difficulties with enrolling or logging into the Patient Portal please complete the [facility] Patient Portal Technical Support Form. [facility] now offers a new secure on-line interactive tool for patients to review their health information ? ?Patient Portal. This interactive web portal will enable patients and their families to take an active role in their care by providing easy, secure access to their health information via the internet. The Patient Portal provides patients with instant access to their health information, including laboratory results, medications, allergies, demographic information, visit history, and more. In addition to managing their own care, parents and health care proxies with authorized consent will appreciate the ability to access the records of those individuals for whom they provide care. Please note: if you wish to gain access (Proxy) to another patient?s portal, you will be required to come to the Medical Records Department in person at [facility]. Both the patient giving proxy access and the proxy will need to provide photo identification and complete the appropriate authorization. The Patient Portal also allows track their appointments online. The [facility] Patient Portal also saves patients time by allowing them to submit updates to their demographic and contact information prior to their visits. Portal email notifications will also alert patients to any new activity on their portal, such as test results and new appointments. In order to initially enroll in the [facility] Patient Portal, you will need to enter some required information including the following: * your [facility] Medical Record number * your personal home email address * name * date of Please note: In order to enroll in the [facility] Patient Portal, we need to have your email address on file in your electronic medical record. ?The email address needs to be specific for one person (yourself) in order for your Portal enrollment to be successful. ?You can update your email address in person with our Registration staff when you are registering for a hospital visit. ?Otherwise, you will need to come to the Health Information Management (Medical Records) Department at [facility]. ?We are open from Wednesday ? Wednesday from 7:30 a.m. ? 4:30 p.m. ?You will be required to present a photo id. Once you have successfully enrolled in the Patient Portal, you will receive a one-time user id and password for the Portal, sent to your email address. ?This will allow you to log into the Patient Portal within 99 hrs and reset your own logon id and password, and define personal security questions. ?Once your permanent login and password have been set, you can log into the [facility] Patient Portal at any time via the blue button above or from the Portal Logon button on any page of the [facility] website. [facility] encourage all of our patients to enroll in Patient Portal as it presents a valuable opportunity for patients and their families to actively participate in their care and stay healthy Welcome to [facility]. ?We look forward to working with you.
[2025-03-14 15:04] VITALS: BP 106/68; PULSE 95; RESP 20; TEMP 36.4; O2SAT 97; BMI 30.2
== END 2025-03-14 15:44 | disposition home or self-care (01) ==
LOC: HO.HMCFM 14:51
PROVIDERS: PCP Nurse Practitioner Family; Visit Provider Nurse Practitioner Family
DX: C73 Malignant neoplasm of thyroid gland (principal); G40.909 Epilepsy, unspecified, not intractable, without status epilepticus; E66.9 Obesity, unspecified; Z68.30 Body mass index [BMI] 30.0-30.9, adult; G43.909 Migraine, unspecified, not intractable, without status migrainosus; Z76.89 Persons encountering health services in other specified circumstances; F41.9 Anxiety disorder, unspecified; F33.0 Major depressive disorder, recurrent, mild; N62 Hypertrophy of breast; M51.369 Other intervertebral disc degeneration, lumbar region without mention of lumbar back pain or lower extremity pain; Z28.21 Immunization not carried out because of patient refusal

== ENCOUNTER 2025-04-27 09:44 | Outpatient (AMB) | payer BC, SELFPAY ==
--- NOTE | 2025-04-27 09:47 | A.OFFPC_ITS ---
Vital Signs 04/27/25 09:50 Height 5 ft 2 in Weight 169 lb 8 oz BMI 31.0 BP 98/66 Blood Pressure Location Lt brachial Position Sitting Respiration 12 Pulse 68 Pulse Source Pulse Oximeter Temp 97.6 F Temp Source Oral Pulse Oximetry (%) 97 Oxygen Delivery Method Room Air Intake Visit Reasons: FU Celexa, Sertraline taper Intake Note: Follow up on med taper. Savings Counselor Required: No Allergies No Known Allergies (No Known Allergies*) Allergy (Verified 04/27/25 10:07) Medication List - Last Reconciled 04/27/25 by Cynthia Vernon, [employer]- calcium carbonate (Calcium 500) 500 mg PO BID cetirizine (All Day Allergy (cetirizine)) 10 mg PO DAILY PRN citalopram (Celexa) 10 mg PO DAILY folic acid 1 mg PO DAILY levetiracetam 500 mg PO BID 90 days levothyroxine (Synthroid) 125 mcg PO DAILY skzzfhnituqx-Ds-eioj-minerals tabs PO naproxen 500 mg PO BID PRN 30 days pyridoxine (vitamin B6) (Vitamin B-6) 100 mg PO DAILY sertraline 50 mg (1/2 x 100 mg) PO DAILY 90 days sumatriptan succinate 100 mg PO DIRECTED Tobacco use date assessed: 04/27/25 Dental Screening Dental Screen Date: 04/27/25 Did you have a dental visit in the last 12 months?: Yes Did you have a dental problem in the last 6 months where you did not have access to dental care?: No Was dental information given to patient?: Patient has dentist HPI HPI Comments History of Present Illness Details 35 y/o F with HAKEEM, DDD of spine, Dyslipi demia, Hashtimotos Thyroid, Mi graine, Fhx breast ca (Maternal and paternal aunt), gynecomastia s/p total thyroidectomy, C section Social: , works for [employer], has a son, 3 years old. Health Maintenance: Tdap 2021 Flu declined 03/14/25 Specialists: Neuro at [facility] History of Present Illness The patient is a 35 year old female presenting for follow-up on anxiety symptoms. Anxiety Disorder: - The patient was started on citalopram at her last visit after being tapered off sertraline for anxiety symptoms characterized by feeling tense and a lack of motivation. - She reports that her anxiety has impro sheri on citalopram, rating her current symptoms as a 5-6 on a 10-point scale, down from an 8 out of 10 previously. - She takes citalopram 10 mg at 8 PM and reports no side effects such as headaches or stomach upset, and her sleep is unaffected. - The patient is still taking sertraline 50 mg, which is a decrease from her 100mg dose. - Denies SI/HI. Review of Systems - Psychiatric: Reports improvement in an xiety, feeling less tense, and increased motivation. - Neurological: Denies headaches. - Gastrointestinal: Denies stomach upset . - Constitutional: Denies sleep disturban ce. Physical Exam General: Well developed, well nourished, in no acute distress. Appears stated age. Head: Normocephalic, atraumatic. Eyes: Pupils are equal, round and reactive to light and accommodation. Conjunctivae are clear. Vision grossly normal. Lungs: Clear to auscultation bilaterally. No rales, rhonchi or wheeze noted. Good air flow in all beatty. Heart: Regular rate and rhythm. No murmurs, click, rubs or gallops are noted. Psych: Mood and affect appropriate. Patient reports improvement in anxiety symptoms with current medication regimen. Medical Decision Making The patient is a 35-year-old female here for a follow-up on anxiety after recently transitioning from sertraline to citalopram. She reports a significant improvement in her symptoms, which she rates as a 5-6/10, down from an 8/10, while taking citalopram 10 mg. She is tolerating the medication well without adverse effects. Given her positive response, we will continue the citalopram 10 mg daily. Since she has been on citalopram for several weeks and is showing improvement, it is appropriate to discontinue the remaining 50 mg dose of sertraline. I have counseled her that there is a small risk of her symptoms worsening after stopping the sertraline. If her anxiety score increases to a 7-8/10 for more than a few days, she is to contact me, and the plan would be to increase her citalopram to 20 mg daily. We will follow up in six weeks to reassess her symptoms. Plan 1. Anxiety Disorder - The patient reports significant improv ement in anxiety symptoms since starting citalopram 10 mg. - She will continue taking citalopram 10 mg daily. - She has been instructed to discontinue the sertraline 50 mg. - The patient was counseled to monitor f or any worsening of symptoms after stopping sertraline and to send a message if her anxiety rating returns to a 7-8 out of 10 for more than a few days. - A contingency plan is in place to incr ease the citalopram dose to 20 mg if symptoms worsen. - A follow-up visit is scheduled for six weeks. - Patient was educated on proper methods for disposing of old medication. Patient Instructions - Continue taking Celexa (citalopram) 10 mg once daily. - You can now stop taking your sertralin e medication. - To dispose of old medications, you can take them to a pharmacy that offers a drug take-back program or mix them at home in a sealed container with wet coffee grounds and gelatin before throwing them away. - Please contact our office if you feel your anxiety symptoms are getting worse after stopping the sertraline, especially if they feel like a 7 or 8 out of 10 for more than a few days. - Schedule a follow-up appointment in out six weeks to check on how you are doing. Consent Patient was informed and verbally consented to the use of an ambient scribe for clinic note documentation during this visit. Total time spent caring for the patient today was 30 minutes. This includes time spent before the visit reviewing the chart, time spent during the visit, and time spent after the visit on documentation, reviewing laboratory results, diagnostic imaging, medications, performing a medically necessary evaluation, counseling on diagnoses, care coordination, ordering appropriate tests, ordering appropriate medications, review of tests performed by other providers, reporting test results with the patient, communication with other healthcare providers. 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 Maternal Grandmother CVD (cardiovascular disease) Maternal Grandfather Diabetes mellitus Paternal Grandmother No problems noted. 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 1. Little interest or pleasure in doing things: not at all 2. Feeling down, depressed, or hopeless: not at all 3. Trouble falling or staying asleep, or sleeping too much: not at all 4. Feeling tired or having little energy: not at all 5. Poor appetite or overeating: not at all 6. Feeling bad about yourself - or that you are a failure or have let yourself or your family down: not at all 7. Trouble concentrating on things, such as reading the newspaper or watching television: not at all 8. Moving or speaking so slowly that other people could have noticed. Or the opposite - being so fidgety or restless that you have been moving around a lot more than usual: not at all 9. Thoughts that you would be better off or of hurting yourself in some way: not at all Total score: 0 Depression Screening Interpretation: Negative Depression Screening Done: Yes 13052 - PHQ-9 Billing: Yes Source: Developed by Drs. Jovon Rodriguez, Christina Black, Noble Kirby and colleagues, with an educational jacob from [employer]. Thrive Questionnaire Date Thrive assessed: 04/27/25 I am a: Patient What is your living situation today?: I have a steady place to live Within the past 12 months, did the food you bought not last and you didn't have the money to get more?: Never true Within the past 12 months, did you worry whether your food would run out before you got money to buy more?: Never true Do you have trouble paying for medicines?: No Do you have trouble getting transportation to medical appointments?: No Do you have trouble paying your heating and electricity bill?: No Do you have trouble taking care of your child, family member or friend?: No Do you have trouble with day-to-day activities such as bathing, preparing meals, shopping, managing finances, etc.?: No Are you currently unemployed and looking for a job?: No Are you interested in more education?: No Please select the resources that you would like help with: None Currently or been in a relationship where the following occur: No concerns reported THRIVE Score: 0 HAKEEM-7 AMB Questionnaire HAKEEM-7 Date HAKEEM - 7 assessed: 04/27/25 Feeling nervous, anxious, or on edge: 0 = Not at all Not being able to stop or control worryin = Not at all Worrying too much about different things: 0 = Not at all Trouble relaxin = Not at all Being so restless that it is hard to sit still: 0 = Not at all Becoming easily annoyed or irritable: 0 = Not at all Feeling afraid as if something awful might happen: 0 = Not at all Total HAKEEM-7 score (0-4 normal; 5-9 mild; 10-14 moderate; 15-21 severe): 0 Source: Developed by Drs. Jovon Rodriguez, Christina Black, Noble Kirby and colleagues, with an educational jacob from [employer]. HAKEEM-7 Assessment Billing HAKEEM-7 Assessment Tool: HAKEEM-7 Assessment 53892 Physical exam (Primary Care) Vital Signs: Last Vital Signs Temp 97.6 F 04/27/25 09:50 Pulse 68 04/27/25 09:50 Resp 12 04/27/25 09:50 BP 98/66 04/27/25 09:50 Pulse Ox 97 04/27/25 09:50 Oxygen Delivery Method Room Air 04/27/25 09:50 BMI result Body Mass Index 31.0 Tobacco/Smoking Status: Tobacco use Status Tobacco use date assessed 04/27/25 04/27/25 09:52 Patient Tobacco Use Status Never used Tobacco 04/27/25 09:52 e-Cigarette/Vaping Use Never Used 04/27/25 09:52 PHQ-9: PHQ-9 Score PHQ-9: Total score 0 04/27/25 10:07 Depression Screening Interpretation: Negative Thrive Assessment: Date of Thrive Assessment Date Thrive assessed 04/27/25 04/27/25 09:52 Currently or been in a relationship where the following occur: No concerns reported Coding Level of Care Code Est Pt Level 4 (71486) Complex visit Add On G2211 Diagnoses Anxiety F41.9 Mild episode of recurrent major depressive disorder F33.0 Depression Type: major depressive disorder Major depression recurrence: recurrent Active/Remission status: currently active Major depression episode severity: mild Additional Codes HAKEEM-7 Assessment Billing - HAKEEM-7 Assessment Tool: HAKEEM-7 Assessment 03728 ([id number]) PHQ-9 - 89848 - PHQ-9 Billing: Yes ([id number]) Assessment & Plan Assessment & Plan (1) Anxiety: Code(s): F41.9 - Anxiety disorder, unspecified Category: Medical (2) Depression: Code(s): F32.A - Depression, unspecified Category: Medical Qualifiers: Depression Type: major depressive disorder Major depression recurrence: recurrent Active/Remission status: currently active Major depression episode severity: mild Qualified Code(s): F33.0 - Major depressive disorder, recurrent, mild Plan / Medications: Discontinued sertraline Discontinued Reason: Patient Completed Course 50 mg (1/2 x 100 mg) PO DAILY 90 days 45 tabs 1RF F41.9 - Anxiety disorder, unspecified
[2025-04-27 09:50] VITALS: BP 98/66; PULSE 68; RESP 12; TEMP 36.4; O2SAT 97; BMI 31.0
== END 2025-04-27 10:24 | disposition home or self-care (01) ==
LOC: HO.HMCFM 09:45
PROVIDERS: PCP Nurse Practitioner Family; Visit Provider Nurse Practitioner Family
DX: F41.9 Anxiety disorder, unspecified (principal); F33.0 Major depressive disorder, recurrent, mild

== ENCOUNTER → 2025-04-27 09:44 | Outpatient (BNVA) | payer BC, SELFPAY | PROVIDERS: PCP Nurse Practitioner Family; Visit Provider Nurse Practitioner Family | DX: F33.0 Major depressive disorder, recurrent, mild (principal); F41.9 Anxiety disorder, unspecified | CPT/HCPCS: 96127 ==